=== PATIENT | female | born 1980 | race Asian ===

== ENCOUNTER 2019-08-28 22:41 | Emergency (ER) | payer OTHER ==
[~2019-08-28] VITALS: Ht 167.6 cm; Wt 61.2 kg
[2019-08-28 22:51] VITALS: BP 122/84; Ht 167.6 cm; Wt 61.2 kg
== END 2019-08-29 00:06 | disposition home or self-care (01) ==
LOC: ED 22:41
DX: J11.1 Influenza due to unidentified influenza virus with other respiratory manifestations (principal)
CPT/HCPCS: 87804

== ENCOUNTER 2019-08-30 18:13 | Emergency (ER) | payer OTHER ==
[~2019-08-30] VITALS: Ht 160 cm; Wt 66.3 kg
[2019-08-30 18:25] VITALS: Ht 160 cm; Wt 66.3 kg
[2019-08-30 19:50] LABS: BASOPHIL % 0.2 % (0-2); PLATELET COUNT 231 x10^3mcL (130-400); RED CELL DISTRIBUTION WIDTH 13.3 % (11.5-14.5)
[2019-08-30 19:58] LABS: CALCIUM 8.5 mg/dL (8.5-10.1); CARBON DIOXIDE 26.5 mmol/L (21-32); CHLORIDE SERUM 101 mmol/L (98-107); CREATININE SERUM 0.7 mg/dL (0.6-1.0); GFR1 > 60 mL/min; GLUCOSE SERUM 89 mg/dL (74-106); POTASSIUM SERUM 3.5 mmol/L (3.5-5.1); SODIUM SERUM 138 mmol/L (136-145)
[2019-08-30 20:02] LABS: ALBUMIN 3.4 g/dL (3.4-5.0); ALKALINE PHOSPHATASE 67 U/L (46-116); ALT/SGPT 29 U/L (14-59); AST/SGOT 17 U/L (15-37); BILIRUBIN TOTAL 0.45 mg/dL (0.20-1.00); LIPASE 50 IU/L (73-393); TOTAL PROTEIN, SERUM 7.5 g/dL (6.4-8.2)
[2019-08-30 22:51] VITALS: BP 122/66
== END 2019-08-30 22:51 | disposition home or self-care (01) ==
LOC: ED 18:13
PROVIDERS: Emergency Medicine
DX: R10.813 Right lower quadrant abdominal tenderness (principal); J11.1 Influenza due to unidentified influenza virus with other respiratory manifestations; R11.2 Nausea with vomiting, unspecified; Z98.890 Other specified postprocedural states; R10.84 Generalized abdominal pain
CPT/HCPCS: J1885; J2405; J7030